=== PATIENT | female | born 1970 | race Hispanic/Latino ===

== ENCOUNTER 2017-08-28 12:56 | Emergency (ER) | payer MEDICARE ==
[2017-08-28 12:57] VITALS: BMI 29.5
[2017-08-28 13:28] VITALS: TEMP 98.9
--- NOTE | 2017-08-28 14:58 | ED PDOC ---
Arrival/HPI - General Chief Complaint: Alcohol Ingestion Time Seen by Provider: 08/28/17 14:14 Historian: Patient - History of Present Illness Narrative History of Present Illness (Text): 08/28/17 14:57 A 47 year old female presents to the emergency department complaining of right ankle pain after mechanical fall last night. Patient admits to drinking alcohol yesterday. She reports while at home she twisted her ankle causing her to fall and hit the back of her head. Patient notes 1 episode of bloody vomiting this morning but denies any other injuries, headache, dizziness, neck pain, abdominal pain, back pain, chest pain, shortness of breath or other complaints. PMD: Dr. Valerio Time/Duration: Other (yesterday night) Context: Home Past Medical History - Provider Review Nursing Documentation Reviewed: Yes - Infectious Disease Hx of Infectious Diseases: None - Tetanus Immunization Tetanus Immunization: Unknown - Reproductive Menopause: Yes - Past Medical History Past Medical History: No Previous - Cardiac Hx Cardiac Disorders: No Hx Pacemaker: No - Pulmonary Hx Respiratory Disorders: No - Neurological Hx Neurological Disorder: No Hx Paralysis: No - HEENT Hx HEENT Disorder: No - Renal Hx Renal Disorder: No - Endocrine/Metabolic Hx Endocrine Disorders: No - Hematological/Oncological Hx Blood Disorders: Yes Hx Hepatitis B: Yes - Integumentary Hx Dermatological Disorder: No - Musculoskeletal/Rheumatological Hx Musculoskeletal Disorders: Yes Other/Comment: R LEG "HAS FATTY TISSUE" - Gastrointestinal Hx Gastrointestinal Disorders: Yes Hx Gastroesophageal Reflux: Yes Hx Gastrointestinal Ulcer: Yes - Genitourinary/Gynecological Hx Genitourinary Disorders: No - Psychiatric Hx Psychophysiologic Disorder: No Hx Substance Use: No - Past Surgical History Past Surgical History: No Previous - Surgical History Hx Section: Yes Hx Cholecystectomy: Yes Other/Comment: ENDOSCOPY - Anesthesia Hx Anesthesia: Yes - Suicidal Assessment Feels Threatened In Home Enviroment: No Family/Social History - Physician Review Nursing Documentation Reviewed: Yes Family/Social History: No Known Family HX Smoking Status: Never Smoked Hx Alcohol Use: Yes Hx Substance Use: No Hx Substance Use Treatment: No Allergies/Home Meds Allergies/Adverse Reactions: Allergies No Known Allergies Allergy (Verified 08/28/17 13:19) Review of Systems - Physician Review All systems were reviewed & negative as marked: Yes - Review of Systems Respiratory: absent: SOB Cardiovascular: absent: Chest Pain Gastrointestinal: Hematemesis. absent: Abdominal Pain Musculoskeletal: Other (right ankle pain). absent: Back Pain, Neck Pain Neurological: absent: Headache, Dizziness Physical Exam Vital Signs Reviewed: Yes Vital Signs Temp Pulse Resp BP Pulse Ox 08/28/17 21:41 82 17 128/75 98 08/28/17 19:00 76 18 128/76 100 08/28/17 17:14 74 17 120/75 99 08/28/17 15:00 78 18 121/80 100 08/28/17 13:27 98.9 F 83 16 119/82 97 Temperature: Afebrile Blood Pressure: Normal Pulse: Regular Respiratory Rate: Normal Appearance: Positive for: Well-Appearing, Non-Toxic, Comfortable Pain Distress: None Mental Status: Positive for: Alert and Oriented X 3 - Systems Exam Head: Present: Atraumatic, Normocephalic Pupils: Present: PERRL Extroacular Muscles: Present: EOMI Conjunctiva: Present: Normal Mouth: Present: Moist Mucous Membranes Neck: Present: Normal Range of Motion. No: MIDLINE TENDERNESS, Paraspinal Tenderness Respiratory/Chest: Present: Clear to Auscultation, Good Air Exchange. No: Respiratory Distress, Accessory Muscle Use Cardiovascular: Present: Regular Rate and Rhythm, Normal S1, S2. No: Murmurs Abdomen: Present: Tenderness (mild epigastric tenderness), Normal Bowel Sounds. No: Distention, Peritoneal Signs, Rebound, Guarding Back: Present: Normal Inspection. No: CVA Tenderness, Midline Tenderness, Paraspinal Tenderness Upper Extremity: Present: Normal Inspection. No: Cyanosis, Edema Lower Extremity: Present: NORMAL PULSES, Normal ROM (to right ankle), Tenderness (Right ankle tenderness to palpation), Swelling (Rigth ankle swelling ), Neurovascularly Intact (Sensation intact). No: Edema, CALF TENDERNESS, Erythema, Deformity, Temperature Abnormalties, Other (Ecchymosis) Neurological: Present: GCS=15, CN II-XII Intact, Speech Normal Skin: Present: Warm, Dry, Normal Color. No: Rashes Psychiatric: Present: Alert, Oriented x 3, Normal Insight, Normal Concentration Medical Decision Making ED Course and Treatment: 08/28/17 14:57 Impression: A 47 year old female with right ankle pain after fall. Patient notes 1 episode of bloody vomiting this morning. Differential Diagnosis included but are not limited to: Fall with ankle pain r/ o ankle fracture, Gastric ulcer vs. GI bleed Plan: -- Abdomen and pelvis CT -- Chest xray -- Right ankle xray -- Labs -- Urinalysis -- Protonix, IV fluids and Tylenol -- Reassess and disposition Progress Notes: Due to head injury occurring 24 hours ago and no post-concussion like symptoms there is no suspicion for intracranial hemorrhage. Will not order head CT at this time. 08/28/17 17:20 Ankle xray read and interpreted by me, which shows no acute fracture. Report Date : 08/28/2017 18:20:28 PROCEDURE: CHEST RADIOGRAPH, 1 VIEW Dictator : Garcia Johansen MD IMPRESSION: No active disease. Report Date : 08/28/2017 21:22:00 EXAM: CT Abdomen and Pelvis With Intravenous Contrast Dictator : Darius Davidson MD IMPRESSION: 1. No definite acute intraabdominal abnormality. 2. Incidental/non-acute findings are described above. 08/28/17 21:39 Leucytosis noted. UA negative. CXR negative. No cough. No urinary symptoms. CT reviewed and results above. On re-evaluation, patient feels better. There were no episodes of vomiting while in the emergency room. I have discussed the results and plan with the patient, who expresses understanding. Patient in agreement with plan to be discharged home. An air cast with anaya wrap was placed on patients ankle and crutches were given. Patient did not want crutches and said she'd walk on it. She says she's fine when she walks. I informed her that it's better to have the crutches for support and due to her sprain but she did not want it . Patient was instructed to follow up with physician or return if symptoms worsen or new concerning symptoms arise. - Lab Interpretations Lab Results: 08/28/17 16:45 08/28/17 16:45 Lab Results 08/28/17 17:50: Urine Color Yellow, Urine Appearance Clear, Urine pH 5.5, Ur Specific [place] >= 1.030, Urine Protein Negative, Urine Glucose (UA) Negative, Urine Ketones Trace H, Urine Blood Negative, Urine Nitrate Negative, Urine Bilirubin Negative, Urine Urobilinogen 0.2, Ur Leukocyte Esterase Negative 08/28/17 16:55: Blood Type B POSITIVE, Antibody Screen Negative, BBK History Checked Patient has bt 08/28/17 16:45: Sodium 141, Potassium 4.9, Chloride 105, Carbon Dioxide 25, Anion Gap 16, BUN 10, Creatinine 0.8, Est GFR ( Amer) > 60, Est GFR (Non- Af Amer) > 60, Random Glucose 92, Calcium 10.1, Total Bilirubin 0.7, AST 56 H, ALT 69 H, Alkaline Phosphatase 112, Total Protein 8.6 H, Albumin 4.4, Globulin 4.2, Albumin/Globulin Ratio 1.0 L, Lipase 76 08/28/17 16:45: PT 12.6 H, INR 1.10 H, APTT 33.6 08/28/17 16:45: WBC 15.3 H D, RBC 4.94, Hgb 13.4, Hct 41.9, MCV 84.8, MCH 27.1, MCHC 32.0, RDW 14.6 H, Plt Count 485 H, MPV 10.0, Gran % 88.6 H, Lymph % (Auto) 7.6 L, Luna % (Auto) 3.3, Eos % (Auto) 0.2 L, Baso % (Auto) 0.3, Gran # 13.54 H , Lymph # 1.2, Luna # 0.5, Eos # 0.0, Baso # 0.04 I have reviewed the lab results: Yes - RAD Interpretation Radiology Orders: 08/28/17 15:37 ANKLE RIGHT 3 VIEWS ROUTINE [RAD] Stat 08/28/17 17:07 CXR [CHEST ONE VIEW] [RAD] Stat 08/28/17 18:19 ABD & PELVIS IV CONTRAST ONLY [CT] Stat - Medication Orders Current Medication Orders: Discontinued Medications Acetaminophen (Tylenol 325mg Tab) 650 mg PO STAT STA Stop: 08/28/17 15:39 Last Admin: 08/28/17 16:32 Dose: 650 mg MAR Pain/Vitals Document 08/28/17 16:32 OCS (Rec: 08/28/17 16:33 OCS [id number]) Pain Reassessment Is This A Pain ReAssessment? Yes Sleep Is patient sleeping during reassessment? No Presence of Pain Presence of Pain Yes Pain Scale Used Pain Scale Used Numeric Location Left, Right or Bilateral Right Pain Location Body Site Ankle Description Constant Intensity 10 Scale Used Numeric Aggravating Factors ADL's Sodium Chloride (Sodium Chloride 0.9%) 500 mls @ 1,000 mls/hr IV .Q30M STA Stop: 08/28/17 16:06 Last Admin: 08/28/17 16:35 Dose: 1,000 mls/hr eMAR Start Stop Document 08/28/17 16:35 OCS (Rec: 08/28/17 16:35 [facility]CS [id number]) Intravenous Solution Start Date 08/28/17 Start Time 16:35 End Date 08/28/17 End time 17:05 Total Infusion Time 30 Pantoprazole Sodium (Protonix Inj) 80 mg IVP STAT STA Stop: 08/28/17 15:38 Last Admin: 08/28/17 16:33 Dose: 80 mg IVP Administration Document 08/28/17 16:33 OCS (Rec: 08/28/17 16:33 [facility]CS [id number]) Charges for Administration # of IVP Administrations 1 - Scribe Statement The provider has reviewed the documentation as recorded by the Nhiibterry Carnes Provider Scribe Attestation: All medical record entries made by the Scribe were at my direction and personally dictated by me. I have reviewed the chart and agree that the record accurately reflects my personal performance of the history, physical exam, medical decision making, and the department course for this patient. I have also personally directed, reviewed, and agree with the discharge instructions and disposition. Disposition/Present on Arrival - Present on Arrival Any Indicators Present on Arrival: No History of DVT/PE: No History of Uncontrolled Diabetes: No Urinary Catheter: No History of Decub. Ulcer: No History Surgical Site Infection Following: None - Disposition Have Diagnosis and Disposition been Completed?: Yes Diagnosis: Abdominal pain, epigastric, Leukocytosis Disposition: HOME/ ROUTINE Disposition Time: 21:39 Patient Plan: Discharge Condition: IMPROVED Discharge Instructions (ExitCare): Gastritis (ED), Gastrointestinal Bleeding ( ED), Ankle Sprain (ED) Additional Instructions: Ms Casanova, thank you for letting us take care of you today. Your provider was Dr. Dye. You were treated for Ankle Sprain, Gastritis. The emergency medical care you received today was directed at your acute symptoms. If you were prescribed any medication, please fill it and take as directed. It may take several days for your symptoms to resolve. Return to the Emergency Department if your symptoms worsen, do not improve, or if you have any other problems. Please contact your doctor or call one of the physicians/clinics you have been referred to that are listed on the Patient Visit Information form that is included in your discharge packet. Bring any paperwork you were given at discharge with you along with any medications you are taking to your follow up visit. Our treatment cannot replace ongoing medical care by a primary care provider (PCP) outside of the emergency department. Thank you for allowing the [facility] team to be part of your care today. If you had an X-Ray or CT scan: A Radiologist will review the ED reading if any change in treatment is needed we will contact you. If you had a blood, urine, or wound culture: It will take several days for the results, if any change in treatment is needed we will contact you. If you had an STI test: It will take 48 hours for the results. Please call after 1 week if you have not heard back. Prescriptions: Pantoprazole [Protonix EC Tab] 40 mg PO DAILY #30 ect Referrals: Jeevan PALMA,MD Mayur [Medical Doctor] - Follow up with primary Josh Valerio MD [Primary Care Provider] - Follow up with primary Tyler Arredondo MD [Staff Provider] - Follow up with primary Forms: [employer] ([employer]), WORK NOTE
[2017-08-28] MEDS ORDERED: Sodium Chloride 0.9% 500 ML IV STA (15:37)
[2017-08-28 16:58] LABS: BASO # 0.04 K/mm3 (0.0-2.0); BASO % 0.3 % (0.0-3.0); EOS % 0.2 % (1.5-5.0); GRAN # 13.54 (1.4-6.5); GRAN % 88.6 % (50.0-68.0); HEMOGLOBIN 13.4 g/dL (12.0-16.0); LYMPH # 1.2 (1.2-3.4); LYMPH % 7.6 % (22.0-35.0); MEAN CELL VOLUME 84.8 fl (80.0-105.0); MEAN CORPUSCULAR HEMOGLOBIN 27.1 pg (25.0-35.0); MONO # 0.5 (0.1-0.6); MONO % 3.3 % (1.0-6.0); RBC 4.94 10^6/uL (3.5-6.1); RED CELL DISTRIBUTION WIDTH 14.6 % (11.5-14.5); WHITE BLOOD COUNT 15.3 10^3/ul (4.5-11.0)
[2017-08-28 17:04] LABS: INR 1.1 (0.93-1.08); PARTIAL THROMBOPLASTIN TIME 33.6 Seconds (25.1-36.5); PROTHROMBIN TIME 12.6 SECONDS (9.4-12.5)
[2017-08-28 17:38] LABS: ALBUMIN 4.4 g/dL (3.0-4.8); ALT/SGPT 69 U/L (7-56); AST/SGOT 56 U/L (14-36); BLOOD UREA NITROGEN 10 mg/dL (7-21); CALCIUM 10.1 mg/dL (8.4-10.5); GFR AFRICAN-AMERICAN > 60; GFR NON-AFRICAN AMERICAN > 60; LIPASE 76 U/L (23-300)
[2017-08-28 18:06] LABS: PH,URINE 5.5 (4.7-8.0); URINE BILIRUBIN NEGATIVE (NEGATIVE); URINE BLOOD NEGATIVE (NEGATIVE); URINE GLUCOSE (UA) NEGATIVE (NEGATIVE); URINE LEUKOCYTE ESTERASE NEGATIVE Leu/uL (NEGATIVE); URINE NITRATE NEGATIVE (NEGATIVE); URINE PROTEIN NEGATIVE mg/dL (<30 mg/dL); URINE UROBILINOGEN 0.2 E.U./dL (<1 E.U./dL)
[2017-08-28 18:07] LABS: URINE APPEARANCE CLEAR (CLEAR); URINE COLOR YELLOW (YELLOW)
--- NOTE | 2017-08-28 18:21 | RAD ---
PROCEDURE: CHEST RADIOGRAPH, 1 VIEW HISTORY: leukocytosis COMPARISON: None available. FINDINGS: LUNGS: Clear. PLEURA: No pneumothorax or pleural fluid seen. CARDIOVASCULAR: Normal. OSSEOUS STRUCTURES: No significant abnormalities. VISUALIZED UPPER ABDOMEN: Normal. OTHER FINDINGS: None. IMPRESSION: No active disease. Concordant results with the preliminary interpretation rendered by the emergency department physician procedure.
[2017-08-28] MEDS ORDERED: Iohexol 350 MG/100 ML VIAL ONE (19:05)
--- NOTE | 2017-08-28 21:23 | CT ---
EXAM: CT Abdomen and Pelvis With Intravenous Contrast CLINICAL HISTORY: 47 years old, female; Pain; Abdominal pain; Prior surgery; Surgery type: - cholecystectomy; Additional info: Abd pain TECHNIQUE: Axial computed tomography images of the abdomen and pelvis with intravenous contrast. All CT scans at this facility use one or more dose reduction techniques, viz.: automated exposure control; ma/kV adjustment per patient size (including targeted exams where dose is matched to indication; i.e. head); or iterative reconstruction technique. Coronal and sagittal reformatted images were created and reviewed. CONTRAST: 92 mL of OMNI 350 administered intravenously. COMPARISON: CT - ABD PELVIS IV CONTRAST ONLY 2016-05-31 12:31 FINDINGS: Limitations: Motion artifact - mild. Lower thorax: Borderline cardiomegaly. Minimal atelectasis/scarring. ABDOMEN: Liver: Unremarkable. No mass. Gallbladder and bile ducts: Cholecystectomy. No significant ductal dilation. Pancreas: No ductal dilation. No mass. Spleen: No splenomegaly. Adrenals: No mass. Kidneys and ureters: Few too small to characterize lesions within RIGHT kidney. No hydronephrosis. Stomach and bowel: Segmental areas of probable underdistention of colon. No definite mural thickening. No obstruction. Appendix: Normal caliber. No inflammation. PELVIS: Bladder: Unremarkable. Reproductive: Unremarkable as visualized. ABDOMEN and PELVIS: Intraperitoneal space: No significant fluid collection. No free air. Bones/joints: No acute fracture. Soft tissues: Tiny umbilical hernia containing fat. Vasculature: Minimal atherosclerotic disease of aorta. No aneurysm. Lymph nodes: No pathologically enlarged lymph nodes. IMPRESSION: 1. No definite acute intraabdominal abnormality. 2. Incidental/non-acute findings are described above.
[2017-08-28 21:42] VITALS: BP 128/75; PULSE 82; RESP 17; O2SAT 98
--- NOTE | 2017-08-29 10:30 | RAD ---
PROCEDURE: Right Ankle Radiographs. HISTORY: Posttraumatic ankle pain. COMPARISON: None FINDINGS: BONES: Normal. No fracture. Small plantar calcaneal spur. JOINTS: Normal. No osteoarthritis. Ankle mortise maintained. Talar dome intact SOFT TISSUES: Lateral soft tissue swelling without fibular fracture. OTHER FINDINGS: None. IMPRESSION: Soft tissue swelling without acute articular or osseous abnormality. Concordant results with the preliminary interpretation rendered by the emergency department physician procedure.
== END 2017-08-28 22:02 | disposition home or self-care (01) ==
LOC: ED 12:56
DX: D72.829 Elevated white blood cell count, unspecified (principal); R10.13 Epigastric pain; S93.401A Sprain of unspecified ligament of right ankle, initial encounter; W18.39XA Other fall on same level, initial encounter; Y92.009 Unspecified place in unspecified non-institutional (private) residence as the place of occurrence of the external cause
CPT/HCPCS: 71045; 73610; 74177; 80053; 81003; 83690; 85025; 85610; 85730; 86850; 86900; 96374; 99285; C9113; J7040; Q9967

== ENCOUNTER 2017-11-14 07:30 | Day surgery (SDC) | payer MEDICARE ==
[2017-11-10 10:27] VITALS: BMI 28.3
[2017-11-14 08:02] VITALS: RESP 14
[2017-11-14] MEDS ORDERED: Propofol 10 mg/ml Inj (20 ML) ONE (09:15)
[2017-11-14] MEDS ORDERED: Sodium Chloride 0.9% 1,000 ML IV SCH (09:45)
[2017-11-14 10:15] VITALS: BP 123/81; PULSE 52; TEMP 98.7; O2SAT 95
== END 2017-11-14 23:30 | disposition home or self-care (01) ==
LOC: ENDO 07:30
PROVIDERS: ATTEND Internal Medicine Gastroenterology
DX: K92.0 Hematemesis (principal); K29.50 Unspecified chronic gastritis without bleeding; K31.9 Disease of stomach and duodenum, unspecified; K21.0 Gastro-esophageal reflux disease with esophagitis
CPT/HCPCS: 43239; 84703; 88305; 88312; 88342; J2001; J2704; J7040 ×2

== ENCOUNTER 2017-11-29 10:53 | Emergency (ER) | payer MEDICARE ==
[2017-11-29 10:54] VITALS: BMI 28.3
[2017-11-29 11:45] VITALS: TEMP 98.3
[2017-11-29] MEDS ORDERED: Alum-Mag Hydrox-Simethicone Susp (30 mL) PO STA (12:00)
[2017-11-29] MEDS ORDERED: Atrop/Hyosc/Scopal/PB Elixir (120 ml) PO STA (12:00)
[2017-11-29] MEDS ORDERED: Lidocaine 2% Viscous 100 ml PO STA (12:01)
--- NOTE | 2017-11-29 12:07 | ED PDOC ---
Arrival/HPI <Fernando Dye - Last Filed: 11/29/17 13:51> - History of Present Illness Time/Duration: 1-3 hours Symptom Onset: Gradual Symptom Course: Improving <Moises Allen - Last Filed: 11/29/17 14:04> - General Chief Complaint: GI Problem Time Seen by Provider: 11/29/17 11:42 - History of Present Illness Narrative History of Present Illness (Text): 11/29/17 12:03 46 year old female with a past medical history that includes gastritis presents to the emergency department complaining of one episode of hematemesis today. She describes it as a small streaks of bright red blood with bile. She reports some epigastric pain that feels similar to the symptoms she has had in the past. Patient had an EGD done with Dr. Higuera on 11/14/17, which showed esophagitis and erosive gastritis. The episode of hematemesis occurred around 830 this morning. Patient decided to shower and eat breakfast (a bowl of cereal ) before she came to the hospital. She tolerated the cereal and did not feel nauseous. Patient is not currently nauseous and has mild abdominal pain. She was given a prescription for a PPI after the EGD but states she has not been taking it because she is unable to afford the medication. She has not taken anything for the abdominal pain. Denies alcohol use or tobacco use. Denies fevers, chills, diarrhea, constipation, chest pain, shortness of breath, headaches, numbness, tingling, urinary changes, sore throat, cough or runny nose. PMD: Dr. Valerio (Moises Allen) Past Medical History - Provider Review Nursing Documentation Reviewed: Yes - Infectious Disease Hx of Infectious Diseases: None - Tetanus Immunization Tetanus Immunization: Unknown - Reproductive Menopause: Yes - Past Medical History Past Medical History: No Previous - Cardiac Hx Pacemaker: No - Pulmonary Hx Respiratory Disorders: No - Neurological Hx Paralysis: No - HEENT Hx HEENT Disorder: No - Renal Hx Renal Disorder: No - Endocrine/Metabolic Hx Endocrine Disorders: No - Hematological/Oncological Hx Blood Transfusions: No Hx Blood Transfusion Reaction: No - Integumentary Hx Dermatological Disorder: No - Musculoskeletal/Rheumatological Hx Musculoskeletal Disorders: Yes - Gastrointestinal Hx Gastrointestinal Disorders: Yes Hx Gastroesophageal Reflux: Yes Hx Gastrointestinal Ulcer: Yes - Genitourinary/Gynecological Hx Genitourinary Disorders: No - Psychiatric Hx Emotional Abuse: No Hx Physical Abuse: No Hx Substance Use: No - Past Surgical History Past Surgical History: No Previous - Surgical History Hx Section: Yes Hx Cholecystectomy: Yes Other/Comment: ENDOSCOPY - Anesthesia Hx Anesthesia: Yes Hx Anesthesia Reactions: No Hx Malignant Hyperthermia: No - Suicidal Assessment Feels Threatened In Home Enviroment: No <Moises Allen - Last Filed: 11/29/17 14:04> Family/Social History - Physician Review Nursing Documentation Reviewed: Yes Family/Social History: Unknown Family HX Smoking Status: Never Smoked Hx Alcohol Use: Yes (ON OCCASIONS ONLY) Hx Substance Use: No Hx Substance Use Treatment: No <Moises Allen - Last Filed: 11/29/17 14:04> Allergies/Home Meds <Fernando Dye - Last Filed: 11/29/17 13:51> <Moises Allen - Last Filed: 11/29/17 14:04> Allergies/Adverse Reactions: Allergies No Known Allergies Allergy (Verified 11/29/17 11:46) Review of Systems - Physician Review All systems were reviewed & negative as marked: Yes - Review of Systems Constitutional: Normal Eyes: Normal ENT: Normal Respiratory: Normal Cardiovascular: Normal Gastrointestinal: Normal Genitourinary Female: Normal Musculoskeletal: Normal Skin: Normal Neurological: Normal Endocrine: Normal Hemo/Lymphatic: Normal Psychiatric: Normal <Moises Allen - Last Filed: 11/29/17 14:04> Physical Exam Vital Signs Reviewed: Yes Temperature: Afebrile Blood Pressure: Normal Pulse: Regular Respiratory Rate: Normal Appearance: Positive for: Well-Appearing, Non-Toxic, Comfortable Pain Distress: None Mental Status: Positive for: Alert and Oriented X 3 - Systems Exam Head: Present: Atraumatic, Normocephalic Pupils: Present: PERRL Extroacular Muscles: Present: EOMI Conjunctiva: Present: Normal Mouth: Present: Moist Mucous Membranes Pharnyx: Present: Normal. No: ERYTHEMA, EXUDATE Nose (External): Present: Atraumatic Nose (Internal): Present: Normal Inspection, No Active Bleeding, Moist. No: Rhinorrhea Neck: Present: Normal Range of Motion Respiratory/Chest: Present: Clear to Auscultation, Good Air Exchange. No: Respiratory Distress, Accessory Muscle Use Cardiovascular: Present: Regular Rate and Rhythm, Normal S1, S2. No: Murmurs Abdomen: Present: Normal Bowel Sounds. No: Tenderness, Distention, Peritoneal Signs, Rebound, Guarding Upper Extremity: Present: Normal Inspection. No: Cyanosis, Edema Lower Extremity: Present: Normal Inspection. No: Edema Neurological: Present: GCS=15, CN II-XII Intact, Speech Normal Skin: Present: Warm, Dry, Normal Color. No: Rashes Lymphatic: No: Cervical Adenopathy Psychiatric: Present: Alert, Oriented x 3, Normal Insight, Normal Concentration <Moises Allen - Last Filed: 11/29/17 14:04> Vital Signs Temp Pulse Resp BP Pulse Ox 11/29/17 11:42 98.3 F 85 19 139/84 97 Medical Decision Making <Fernando Dye - Last Filed: 11/29/17 13:51> Re-evaluation Time: 13:45 Reassessment Condition: Re-examined, Improving,but remains with symptoms ( patient reports improving abdominal pain.) <Moises Allen - Last Filed: 11/29/17 14:04> ED Course and Treatment: 11/29/17 12:49 Kiara Casanova is a 47 year old female whose past medical history includes gastritis, presents to the emergency room complaining of an episode of hematemesis. In agreement with resident note. Patient was seen and evaluated with resident, came up with plan and treatment together. 11/29/17 13:51: Case discussed in detail with Dr. Ma. (Fernando Dye) Patient is resting comfortably in bed in no acute distress. She is smiling, laughing and speaking in complete sentences. Vitals are stable. Patient reports all symptoms have resolved at this time except for mild epigastric pain, although she is not tender to palpation. Labs not indicated at this time. Given combo of viscous lidocaine, maalox and . (Moises Allen) - Medication Orders Current Medication Orders: Discontinued Medications Al Hydrox/Mg Hydrox/Simethicone (Maalox Plus 30 Ml) 30 ml PO STAT STA Stop: 11/29/17 12:01 Last Admin: 11/29/17 12:12 Dose: 30 ml Belladonna/Phenobarbital ( Elixir) 5 ml PO STAT STA Stop: 11/29/17 12:01 Last Admin: 11/29/17 12:12 Dose: 5 ml Lidocaine (Lidocaine 2% Viscous) 15 ml PO STAT STA Stop: 11/29/17 12:02 Lidocaine HCl (Lidocaine 2% Viscous) 15 ml MM STAT STA Stop: 11/29/17 12:03 Last Admin: 11/29/17 12:12 Dose: 15 ml - Scribe Statement The provider has reviewed the documentation as recorded by the Scribe <Fernando Dye - Last Filed: 11/29/17 13:51> <Moises Allen - Last Filed: 11/29/17 14:04> - Scribe Statement Serenity Gunter Provider Scribe Attestation: All medical record entries made by the Scribe were at my direction and personally dictated by me. I have reviewed the chart and agree that the record accurately reflects my personal performance of the history, physical exam, medical decision making, and the department course for this patient. I have also personally directed, reviewed, and agree with the discharge instructions and disposition. (Fernando Dye) Disposition/Present on Arrival <Fernando Dye - Last Filed: 11/29/17 13:51> - Present on Arrival Any Indicators Present on Arrival: No History of DVT/PE: No History of Uncontrolled Diabetes: No Urinary Catheter: No History of Decub. Ulcer: No History Surgical Site Infection Following: None - Disposition Have Diagnosis and Disposition been Completed?: Yes Disposition Time: 14:00 Patient Plan: Discharge <Moises Allen - Last Filed: 11/29/17 14:04> - Disposition Diagnosis: GERD (gastroesophageal reflux disease), Abdominal pain, epigastric, Gastritis Disposition: HOME/ ROUTINE Condition: IMPROVED Discharge Instructions (ExitCare): Acid Reflux (Gastroesophageal Reflux Disease ) in Adults, Gastritis Additional Instructions: Ms FranklinJocelyne, thank you for letting us take care of you today. Your provider was Dr. Dye. You were treated for abdominal pain. The emergency medical care you received today was directed at your acute symptoms. If you were prescribed any medication, please fill it and take as directed. It may take several days for your symptoms to resolve. Return to the Emergency Department if your symptoms worsen, do not improve, or if you have any other problems. Please contact your doctor or call one of the physicians/clinics you have been referred to that are listed on the Patient Visit Information form that is included in your discharge packet. Bring any paperwork you were given at discharge with you along with any medications you are taking to your follow up visit. Our treatment cannot replace ongoing medical care by a primary care provider (PCP) outside of the emergency department. Thank you for allowing the [facility] team to be part of your care today. Referrals: Josh Valerio MD [Primary Care Provider] - Follow up with primary Forms: [employer] (French)
[2017-11-29 14:36] VITALS: BP 135/78; PULSE 72; RESP 18; O2SAT 98
== END 2017-11-29 14:36 | disposition home or self-care (01) ==
LOC: ED 10:53
DX: K21.9 Gastro-esophageal reflux disease without esophagitis (principal); K29.70 Gastritis, unspecified, without bleeding; R10.13 Epigastric pain

== ENCOUNTER 2017-11-30 11:18 | Emergency (ER) | payer MEDICARE ==
[2017-11-30 11:18] VITALS: BMI 28.3
[2017-11-30] MEDS ORDERED: Sodium Chloride 0.9% 1,000 ML IV STA (11:31)
--- NOTE | 2017-11-30 12:00 | ED PDOC ---
Arrival/HPI - General Time Seen by Provider: 11/30/17 11:25 Historian: Patient - History of Present Illness Narrative History of Present Illness (Text): 11/30/17 11:56 A 47 year old female, whose past medical history includes erosive gastritis, presents to the emergency department for worsening epigastric abdominal aching. The patient denies taking medication for the pain. She notes she has had two episodes of watery diarrhea, but she denies any urinary problems, fever, vomiting, or any other complaints at this time. The patient was last seen in the emergency department 1 day ago for similar complaints. Time/Duration: 24 hours Symptom Onset: Gradual Symptom Course: Unchanged Quality: Aching Activities at Onset: Light Context: Home Past Medical History - Provider Review Nursing Documentation Reviewed: Yes - Infectious Disease Hx of Infectious Diseases: None - Tetanus Immunization Tetanus Immunization: Unknown - Past Medical History Past Medical History: No Previous - Cardiac Hx Pacemaker: No - Pulmonary Hx Respiratory Disorders: No - Neurological Hx Paralysis: No - HEENT Hx HEENT Disorder: No - Renal Hx Renal Disorder: No - Endocrine/Metabolic Hx Endocrine Disorders: No - Hematological/Oncological Hx Blood Transfusions: No Hx Blood Transfusion Reaction: No - Integumentary Hx Dermatological Disorder: No - Musculoskeletal/Rheumatological Hx Musculoskeletal Disorders: Yes - Gastrointestinal Hx Gastrointestinal Disorders: Yes Hx Gastroesophageal Reflux: Yes Hx Gastrointestinal Ulcer: Yes - Genitourinary/Gynecological Hx Genitourinary Disorders: No - Psychiatric Hx Emotional Abuse: No Hx Physical Abuse: No Hx Substance Use: No - Past Surgical History Past Surgical History: No Previous - Surgical History Hx Section: Yes Hx Cholecystectomy: Yes Other/Comment: ENDOSCOPY - Anesthesia Hx Anesthesia: Yes Hx Anesthesia Reactions: No Hx Malignant Hyperthermia: No - Suicidal Assessment Feels Threatened In Home Enviroment: No Family/Social History - Physician Review Nursing Documentation Reviewed: Yes Family/Social History: No Known Family HX Smoking Status: Never Smoked Hx Alcohol Use: Yes (ON OCCASIONS ONLY) Hx Substance Use: No Hx Substance Use Treatment: No Allergies/Home Meds Allergies/Adverse Reactions: Allergies No Known Allergies Allergy (Verified 11/29/17 11:46) Review of Systems - Physician Review All systems were reviewed & negative as marked: Yes - Review of Systems Constitutional: absent: Fevers Gastrointestinal: Abdominal Pain, Diarrhea. absent: Nausea, Vomiting Genitourinary Female: absent: Dysuria, Urine Output Changes Physical Exam Vital Signs Reviewed: Yes Vital Signs Temp Pulse Resp BP Pulse Ox 11/30/17 12:53 59 L 18 135/74 100 11/30/17 11:59 98.2 F 55 L 20 139/80 96 11/30/17 11:33 98.2 F 57 L 18 139/80 99 Temperature: Afebrile Blood Pressure: Normal Pulse: Bradycardic Respiratory Rate: Normal Appearance: Positive for: Well-Appearing, Non-Toxic, Comfortable Pain Distress: None Mental Status: Positive for: Alert and Oriented X 3 - Systems Exam Head: Present: Atraumatic, Normocephalic Pupils: Present: PERRL Extroacular Muscles: Present: EOMI Conjunctiva: Present: Normal Mouth: Present: Moist Mucous Membranes Neck: Present: Normal Range of Motion Respiratory/Chest: Present: Clear to Auscultation, Good Air Exchange. No: Respiratory Distress, Accessory Muscle Use Cardiovascular: Present: Regular Rate and Rhythm, Normal S1, S2. No: Murmurs Abdomen: Present: Tenderness (mild epigastric tenderness ). No: Distention, Peritoneal Signs, Guarding Back: Present: Normal Inspection Upper Extremity: Present: Normal Inspection. No: Cyanosis, Edema Lower Extremity: Present: Normal Inspection. No: Edema Neurological: Present: GCS=15, CN II-XII Intact, Speech Normal Skin: Present: Warm, Dry, Normal Color. No: Rashes Psychiatric: Present: Alert, Oriented x 3, Normal Insight, Normal Concentration Medical Decision Making ED Course and Treatment: 11/30/17 11:57 Impression: A 47 year old female with epigastric pain. Differential Diagnosis included but are not limited to: gastritis rule or pancreatitis Plan: -- Labs -- Pepcid, Zofran, IV Fluids -- Reassess and disposition Progress Notes: 11/30/17 13:20 Patient is feeling better. Abdomen is soft and not tender. Not distended. No n/ v. Patient is tolerating PO fluids. She will be discharged with primary care followup and GI followup. Patient advised to return to the ED if symptoms worsen or any other concern. - Lab Interpretations Lab Results: 11/30/17 12:30 11/30/17 12:30 Lab Results 11/30/17 12:30: Sodium 146, Potassium 5.1 H, Chloride 106, Carbon Dioxide 30, Anion Gap 16, BUN 9, Creatinine 0.8, Est GFR ( Amer) > 60, Est GFR (Non- Af Amer) > 60, Random Glucose 90, Calcium 9.7, Total Bilirubin 0.3, AST 23, ALT 22, Alkaline Phosphatase 89, Total Protein 8.1, Albumin 4.3, Globulin 3.8, Albumin/Globulin Ratio 1.1, Lipase 189 11/30/17 12:30: WBC 7.7 D, RBC 4.57, Hgb 12.2, Hct 38.7, MCV 84.7, MCH 26.7, MCHC 31.5, RDW 15.2 H, Plt Count 402, MPV 9.7, Gran % 67.7, Lymph % (Auto) 20.8 L, [place] % (Auto) 5.9, Eos % (Auto) 4.8, Baso % (Auto) 0.8, Gran # 5.19, Lymph # (Auto) 1.6, [place] # (Auto) 0.5, Eos # (Auto) 0.4, Baso # (Auto) 0.06 - Medication Orders Current Medication Orders: Discontinued Medications Famotidine (Pepcid) 20 mg IVP STAT STA Stop: 11/30/17 11:32 Last Admin: 11/30/17 12:43 Dose: 20 mg IVP Administration Document 11/30/17 12:43 (Rec: 11/30/17 12:43 [id number] Charges for Administration # of IVP Administrations 1 Sodium Chloride (Sodium Chloride 0.9%) 1,000 mls @ 1,000 mls/hr IV .Q1H STA Stop: 11/30/17 12:30 Last Admin: 11/30/17 12:44 Dose: 1,000 mls/hr eMAR Start Stop Document 11/30/17 12:44 (Rec: 11/30/17 12:44 [id number][facility] Intravenous Solution Start Date 11/30/17 Start Time 12:44 Ondansetron HCl (Zofran Inj) 4 mg IVP STAT STA Stop: 11/30/17 11:32 Last Admin: 11/30/17 12:43 Dose: 4 mg IVP Administration Document 11/30/17 12:43 (Rec: 11/30/17 12:44 [id number] Charges for Administration # of IVP Administrations 1 Sodium Polystyrene Sulfonate (Kayexalate Susp) 15 gm PO STAT STA Stop: 11/30/17 12:50 Last Admin: 11/30/17 13:09 Dose: 15 gm - Scribe Statement The provider has reviewed the documentation as recorded by the Nhiibe Geno De Leon Provider Scribe Attestation: All medical record entries made by the Scribe were at my direction and personally dictated by me. I have reviewed the chart and agree that the record accurately reflects my personal performance of the history, physical exam, medical decision making, and the department course for this patient. I have also personally directed, reviewed, and agree with the discharge instructions and disposition. Disposition/Present on Arrival - Present on Arrival Any Indicators Present on Arrival: No History of DVT/PE: No History of Uncontrolled Diabetes: No Urinary Catheter: No History Surgical Site Infection Following: None - Disposition Have Diagnosis and Disposition been Completed?: Yes Diagnosis: Abdominal pain Disposition: HOME/ ROUTINE Disposition Time: 13:22 Patient Plan: Discharge Patient Problems: Current Active Problems Problem Status Onset Abdominal pain Acute Condition: IMPROVED Discharge Instructions (ExitCare): Acute Abdomen (Belly Pain) Additional Instructions: Jocelyne, thank you for letting us take care of you today. Your provider was Dr. Dye. You were treated for Abdominal Pain. The emergency medical care you received today was directed at your acute symptoms. If you were prescribed any medication, please fill it and take as directed. It may take several days for your symptoms to resolve. Return to the Emergency Department if your symptoms worsen, do not improve, or if you have any other problems. Please contact your doctor or call one of the physicians/clinics you have been referred to that are listed on the Patient Visit Information form that is included in your discharge packet. Bring any paperwork you were given at discharge with you along with any medications you are taking to your follow up visit. Our treatment cannot replace ongoing medical care by a primary care provider (PCP) outside of the emergency department. Thank you for allowing the [facility] team to be part of your care today. If you had an X-Ray or CT scan: A Radiologist will review the ED reading if any change in treatment is needed we will contact you. If you had a blood, urine, or wound culture: It will take several days for the results, if any change in treatment is needed we will contact you. If you had an STI test: It will take 48 hours for the results. Please call after 1 week if you have not heard back. Prescriptions: Ondansetron ODT [Zofran ODT] 4 mg PO Q6 #14 odt Ranitidine HCl [Zantac] 150 mg PO BID PRN #30 tablet PRN Reason: Pain, Mild (1-3) Referrals: Josh Valerio MD [Primary Care Provider] - Follow up with primary Forms: [employer] (Indonesian)
[2017-11-30 12:39] LABS: BASO # 0.06 K/mm3 (0.0-2.0); BASO % 0.8 % (0.0-3.0); EOS # 0.4 (0.0-0.7); EOS % 4.8 % (1.5-5.0); GRAN # 5.19 (1.4-6.5); GRAN % 67.7 % (50.0-68.0); HEMOGLOBIN 12.2 g/dL (12.0-16.0); LYMPH # 1.6 (1.2-3.4); LYMPH % 20.8 % (22.0-35.0); MEAN CELL VOLUME 84.7 fl (80.0-105.0); MEAN CORPUSCULAR HEMOGLOBIN 26.7 pg (25.0-35.0); MEAN CORPUSCULAR HGB CONC 31.5 g/dl (31.0-37.0); MEAN PLATELET VOLUME 9.7 fl (7.0-11.0); MONO # 0.5 (0.1-0.6); MONO % 5.9 % (1.0-6.0); RBC 4.57 10^6/uL (3.5-6.1); RED CELL DISTRIBUTION WIDTH 15.2 % (11.5-14.5); WHITE BLOOD COUNT 7.7 10^3/ul (4.5-11.0)
[2017-11-30 12:47] LABS: ALB/GLOB RATIO 1.1 (1.1-1.8); ALBUMIN 4.3 g/dL (3.0-4.8); ALT/SGPT 22 U/L (7-56); AST/SGOT 23 U/L (14-36); BLOOD UREA NITROGEN 9 mg/dL (7-21); CALCIUM 9.7 mg/dL (8.4-10.5); GFR AFRICAN-AMERICAN > 60; GFR NON-AFRICAN AMERICAN > 60; LIPASE 189 U/L (23-300)
[2017-11-30] MEDS ORDERED: Sod Polystyrene Sulf 15 gm/60 ml Susp PO STA (12:49)
[2017-11-30 12:53] VITALS: RESP 18
[2017-11-30 14:38] VITALS: BP 139/60; PULSE 55; TEMP 98.7; O2SAT 97
== END 2017-11-30 14:30 | disposition home or self-care (01) ==
LOC: ED 11:18
DX: R10.9 Unspecified abdominal pain (principal)
CPT/HCPCS: 80053; 83690; 85025; 96374; 96375; 99283; J2405; J7040

== ENCOUNTER 2017-12-04 19:13 | Emergency (ER) | payer MEDICARE ==
[2017-12-04 19:13] VITALS: BMI 28.3
[2017-12-04 19:27] VITALS: BP 121/69; PULSE 100; RESP 17; TEMP 99.2; O2SAT 97
[2017-12-04] MEDS ORDERED: Atrop/Hyosc/Scopal/PB Elixir (120 ml) PO STA (19:51)
[2017-12-04] MEDS ORDERED: Alum-Mag Hydrox-Simethicone Susp (30 mL) PO STA (19:51)
--- NOTE | 2017-12-04 19:55 | ED PDOC ---
Arrival/HPI - General Chief Complaint: Abdominal Pain Time Seen by Provider: 12/04/17 19:29 Historian: Patient - History of Present Illness Narrative History of Present Illness (Text): 12/04/17 19:52 46 year old female with a past medical history that includes gastritis presents to the emergency department complaining of epigastric pain. Patient admits she has come for same complain last weekend, and ER medication helps to relief her gastritis. Patient has not been able to get medication for gastritis since she does not have money. Patient otherwise states she feels well. Patient denies fever, nausea, vomiting, diarrhea, recent travel, sick contact, estevez, dizziness, or abnormal gait. Time/Duration: Other (see hpi) Context: Home Past Medical History - Provider Review Nursing Documentation Reviewed: Yes - Infectious Disease Hx of Infectious Diseases: None - Tetanus Immunization Tetanus Immunization: Unknown - Past Medical History Past Medical History: No Previous - Cardiac Hx Cardiac Disorders: No - Pulmonary Hx Respiratory Disorders: No - Neurological Hx Neurological Disorder: No - HEENT Hx HEENT Disorder: No - Renal Hx Renal Disorder: No - Endocrine/Metabolic Hx Endocrine Disorders: No - Hematological/Oncological Hx Blood Disorders: No - Integumentary Hx Dermatological Disorder: No - Musculoskeletal/Rheumatological Hx Musculoskeletal Disorders: Yes - Gastrointestinal Hx Gastrointestinal Disorders: Yes Hx Gastroesophageal Reflux: Yes Hx Gastrointestinal Ulcer: Yes - Genitourinary/Gynecological Hx Genitourinary Disorders: No - Psychiatric Hx Psychophysiologic Disorder: No Hx Substance Use: No - Past Surgical History Past Surgical History: No Previous - Surgical History Hx Section: Yes Hx Cholecystectomy: Yes Hx Tubal Ligation: Yes Other/Comment: ENDOSCOPY - Anesthesia Hx Anesthesia: Yes Hx Anesthesia Reactions: No Hx Malignant Hyperthermia: No - Suicidal Assessment Feels Threatened In Home Enviroment: No Family/Social History - Physician Review Nursing Documentation Reviewed: Yes Family/Social History: Other (noncontributory) Smoking Status: Never Smoked Hx Alcohol Use: Yes (ON OCCASIONS ONLY) Hx Substance Use: No Hx Substance Use Treatment: No Allergies/Home Meds Allergies/Adverse Reactions: Allergies No Known Allergies Allergy (Verified 12/04/17 19:22) Review of Systems - Review of Systems Constitutional: Normal. absent: Fatigue, Weight Change, Fevers Eyes: Normal ENT: Normal Respiratory: Normal. absent: SOB, Cough Cardiovascular: Normal. absent: Chest Pain, Palpitations Gastrointestinal: Abdominal Pain (epigastric). absent: Constipation, Diarrhea, Nausea, Vomiting Genitourinary Female: Normal. absent: Dysuria, Frequency, Vaginal Bleeding, Vaginal Discharge Musculoskeletal: Normal. absent: Back Pain, Neck Pain Skin: Normal. absent: Rash Neurological: Normal. absent: Headache, Dizziness, Focal Weakness, Gait Changes , Speech Changes, Facial Droop, Disequilibrium, Seizure Endocrine: Normal Hemo/Lymphatic: Normal Psychiatric: Normal Physical Exam Vital Signs Temp Pulse Resp BP Pulse Ox 12/04/17 19:22 99.2 F 100 H 17 121/69 97 Temperature: Afebrile Blood Pressure: Normal Pulse: Regular Respiratory Rate: Normal Appearance: Positive for: Well-Appearing, Non-Toxic, Comfortable Pain Distress: None Mental Status: Positive for: Alert and Oriented X 3 - Systems Exam Head: Present: Atraumatic, Normocephalic Pupils: Present: PERRL Extroacular Muscles: Present: EOMI Conjunctiva: Present: Normal Mouth: Present: Moist Mucous Membranes Neck: Present: Normal Range of Motion. No: Meningeal Signs, MIDLINE TENDERNESS , Paraspinal Tenderness Respiratory/Chest: Present: Clear to Auscultation, Good Air Exchange. No: Respiratory Distress, Accessory Muscle Use, Wheezes, Retracting, Rhonchi Cardiovascular: Present: Regular Rate and Rhythm, Normal S1, S2. No: Murmurs Abdomen: Present: Normal Bowel Sounds. No: Tenderness, Distention, Peritoneal Signs, Rebound, Guarding Upper Extremity: Present: Normal Inspection, Normal ROM, NORMAL PULSES. No: Edema Lower Extremity: Present: Normal Inspection, NORMAL PULSES, Normal ROM. No: Edema Neurological: Present: GCS=15, CN II-XII Intact, Speech Normal, Motor Func Grossly Intact, Normal Sensory Function, Normal Cerebellar Funct, Gait Normal, Memory Normal Skin: Present: Warm, Dry, Normal Color. No: Rashes Psychiatric: Present: Alert, Oriented x 3, Normal Insight, Normal Concentration Medical Decision Making ED Course and Treatment: 12/04/17 20:55 Re-evaluation. Patient feels better. Discussed results and plan with patient who expresses understanding. All questions answered and there is agreement with the plan to discharge home with instructions. Patient stable for discharge. Return if symptoms persist or worsen. Abdomen is soft, nt/nd Re-evaluation Time: 20:55 Reassessment Condition: Re-examined, Improved - Medication Orders Current Medication Orders: Discontinued Medications Al Hydrox/Mg Hydrox/Simethicone (Maalox Plus 30 Ml) 30 ml PO STAT STA Stop: 12/04/17 19:52 Last Admin: 12/04/17 20:14 Dose: 30 ml Belladonna/Phenobarbital ( Elixir) 5 ml PO STAT STA Stop: 12/04/17 19:52 Last Admin: 12/04/17 20:14 Dose: 5 ml Famotidine (Pepcid) 40 mg PO STAT STA Stop: 12/04/17 19:52 Last Admin: 12/04/17 20:14 Dose: 40 mg Lidocaine HCl (Lidocaine 2% Viscous) 5 ml PO STAT STA Stop: 12/04/17 19:52 Last Admin: 12/04/17 20:14 Dose: 5 ml Disposition/Present on Arrival - Present on Arrival Any Indicators Present on Arrival: No History of DVT/PE: No History of Uncontrolled Diabetes: No Urinary Catheter: No History of Decub. Ulcer: No History Surgical Site Infection Following: None - Disposition Have Diagnosis and Disposition been Completed?: Yes Diagnosis: GERD (gastroesophageal reflux disease) Disposition: HOME/ ROUTINE Disposition Time: 20:55 Patient Plan: Discharge Condition: IMPROVED Discharge Instructions (ExitCare): Acid Reflux (Gastroesophageal Reflux Disease ), Adult (DC) Additional Instructions: Call private doctor for follow up visit in 1-2 days. You can also call clinic if you do not have a doctor. Take medication as instructed. Return to emergency if symptoms worsen. Prescriptions: Famotidine [Pepcid] 40 mg PO DAILY #20 tablet Sucralfate [Carafate] 1 gm PO DAILY #20 tab Referrals: [facility] Fredy Turner, [Non-Staff] - Follow up with primary Garcia Hill DO [Staff Provider] - Follow up with primary Jose Alberto Acharya MD [Staff Provider] - Follow up with primary Forms: [employer] (Yi)
== END 2017-12-04 21:00 | disposition home or self-care (01) ==
LOC: ED 19:13
DX: K21.9 Gastro-esophageal reflux disease without esophagitis (principal)

== ENCOUNTER 2018-03-15 08:10 | Emergency (ER) | payer MEDICARE ==
[2018-03-15 08:10] VITALS: BMI 28.3
[2018-03-15 08:59] VITALS: RESP 18; TEMP 98.6
--- NOTE | 2018-03-15 09:10 | ED PDOC ---
Arrival/HPI - General Chief Complaint: Lower Extremity Problem/Injury Time Seen by Provider: 03/15/18 08:51 Historian: Patient - History of Present Illness Narrative History of Present Illness (Text): 03/15/18 09:03 48 year old female,with past medical history of gastritis, presents to the Emergency department complaining of left ankle discomfort since past month. Patient informs non radiating localized discomfort to her posterior left ankle worsening for past day prompting her to present to the Emergency department for medical evaluation. Patient denies taking any pain medication stating she is unable to afford it. Patient denies visiting her PMD for the presented symptoms. Patient denies any fever, chills, nausea, vomiting, diarrhea, abdominal pain, chest pain, shortness of breath, headache, dizziness, trauma or any other complaints. PMD: Dr. Valerio Time/Duration: < month Symptom Onset: Gradual Symptom Course: Unchanged Quality: Aching Activities at Onset: Light Context: Home Past Medical History - Provider Review Nursing Documentation Reviewed: Yes - Infectious Disease Hx of Infectious Diseases: None - Tetanus Immunization Tetanus Immunization: Unknown - Past Medical History Past Medical History: No Previous - Cardiac Hx Cardiac Disorders: No - Pulmonary Hx Respiratory Disorders: No - Neurological Hx Neurological Disorder: No - HEENT Hx HEENT Disorder: No - Renal Hx Renal Disorder: No - Endocrine/Metabolic Hx Endocrine Disorders: No - Hematological/Oncological Hx Blood Disorders: No - Integumentary Hx Dermatological Disorder: No - Musculoskeletal/Rheumatological Hx Musculoskeletal Disorders: Yes - Gastrointestinal Hx Gastrointestinal Disorders: Yes Hx Gastroesophageal Reflux: Yes Hx Gastrointestinal Ulcer: Yes - Genitourinary/Gynecological Hx Genitourinary Disorders: No - Psychiatric Hx Psychophysiologic Disorder: No Hx Substance Use: No - Past Surgical History Past Surgical History: No Previous - Surgical History Hx Section: Yes (x2) Hx Cholecystectomy: Yes Hx Tubal Ligation: Yes Other/Comment: ENDOSCOPY - Anesthesia Hx Anesthesia: Yes Hx Anesthesia Reactions: No Hx Malignant Hyperthermia: No - Suicidal Assessment Feels Threatened In Home Enviroment: No Family/Social History - Physician Review Nursing Documentation Reviewed: Yes Family/Social History: No Known Family HX Smoking Status: Never Smoked Hx Alcohol Use: Yes (ON OCCASIONS ONLY) Hx Substance Use: No Hx Substance Use Treatment: No Allergies/Home Meds Allergies/Adverse Reactions: Allergies No Known Allergies Allergy (Verified 03/15/18 08:53) Review of Systems - Physician Review All systems were reviewed & negative as marked: Yes - Review of Systems Constitutional: absent: Fevers Respiratory: absent: SOB Cardiovascular: absent: Chest Pain Gastrointestinal: absent: Abdominal Pain, Diarrhea, Nausea, Vomiting Musculoskeletal: Other (left ankle pain) Neurological: absent: Headache, Dizziness Physical Exam Vital Signs Reviewed: Yes Vital Signs Temp Pulse Resp BP Pulse Ox 03/15/18 09:57 98.6 F 77 18 122/79 99 03/15/18 08:53 98.6 F 64 18 120/55 L 97 Temperature: Afebrile Blood Pressure: Normal Pulse: Regular Respiratory Rate: Normal Appearance: Positive for: Well-Appearing, Non-Toxic, Comfortable Pain Distress: None Mental Status: Positive for: Alert and Oriented X 3 - Systems Exam Head: Present: Atraumatic, Normocephalic Pupils: Present: PERRL Extroacular Muscles: Present: EOMI Conjunctiva: Present: Normal Respiratory/Chest: Present: Clear to Auscultation, Good Air Exchange. No: Respiratory Distress, Accessory Muscle Use Cardiovascular: Present: Regular Rate and Rhythm, Normal S1, S2. No: Murmurs Abdomen: No: Tenderness, Distention, Peritoneal Signs Upper Extremity: Present: Normal Inspection. No: Cyanosis, Edema Lower Extremity: Present: NORMAL PULSES, Normal ROM, Tenderness (posterior left ankle tenderness), Neurovascularly Intact. No: Edema, Swelling Neurological: Present: GCS=15, CN II-XII Intact, Speech Normal Skin: Present: Warm, Dry, Normal Color. No: Rashes Psychiatric: Present: Alert, Oriented x 3, Normal Insight, Normal Concentration Medical Decision Making ED Course and Treatment: 03/15/18 09:10 Impression: 48 year old female presents to the Emergency department for left ankle discomfort. Differential Diagnosis included but are not limited to: fracture vs. musculoskeletal Plan: -- Tylenol -- X-ray of left ankle -- Reassess and disposition Prior Visits: Notes and results from previous visits were reviewed. Progress Notes: 03/15/18 14:32 xr neg. pt ambulating in nad. no erytehma warmth good rom, advise otut fu - RAD Interpretation Radiology Orders: 03/15/18 08:59 ANKLE LEFT 3 VIEWS ROUTINE [RAD] Stat - Medication Orders Current Medication Orders: Discontinued Medications Acetaminophen (Tylenol 325mg Tab) 975 mg PO STAT STA Stop: 03/15/18 09:00 Last Admin: 03/15/18 09:17 Dose: 975 mg MAR Pain/Vitals Document 03/15/18 09:17 SHON (Rec: 03/15/18 09:17 SHON [id number]) Pain Reassessment Is This A Pain ReAssessment? No Sleep Is patient sleeping during reassessment? No Presence of Pain Presence of Pain Yes Pain Scale Used Pain Scale Used Numeric - Scribe Statement The provider has reviewed the documentation as recorded by the Scribe Crescencio Ng. All medical record entries made by the Scribe were at my direction and personally dictated by me. I have reviewed the chart and agree that the record accurately reflects my personal performance of the history, physical exam, medical decision making, and the department course for this patient. I have also personally directed, reviewed, and agree with the discharge instructions and disposition. Disposition/Present on Arrival - Present on Arrival Any Indicators Present on Arrival: No History of DVT/PE: No History of Uncontrolled Diabetes: No Urinary Catheter: No History of Decub. Ulcer: No History Surgical Site Infection Following: None - Disposition Have Diagnosis and Disposition been Completed?: Yes Diagnosis: Ankle pain Disposition: HOME/ ROUTINE Disposition Time: 10:00 Condition: STABLE Discharge Instructions (ExitCare): Foot Sprain (DC) Additional Instructions: please follow up with specialist. return to er with worsening symptoms or concerns. Prescriptions: Naproxen 500 mg PO BID PRN #14 tablet PRN Reason: Pain, Mild (1-3) Referrals: Cuco Mathews DO [Staff Provider] - Follow up with primary Forms: [employer] (Palestinian)
[2018-03-15 09:59] VITALS: BP 122/79; PULSE 77; O2SAT 99
--- NOTE | 2018-03-15 12:37 | RAD ---
Date of service: 03/15/2018 PROCEDURE: Left Ankle Radiographs. HISTORY: ankle pain COMPARISON: None FINDINGS: BONES: No evidence of acute displaced fracture nor dislocation. The osseous structures including talar dome intact. Small plantar surface enthesophyte JOINTS: No significant degenerative osteoarthritis Osteoarthritis. Ankle mortise maintained. SOFT TISSUES: No significant soft tissue swelling. OTHER FINDINGS: None. IMPRESSION: No evidence of acute displaced fracture nor dislocation. If symptoms persist or occult fracture suspected clinically consider repeat radiographs in 5-10 days as most fractures should become radiographically evident in this timeframe.
== END 2018-03-15 09:57 | disposition home or self-care (01) ==
LOC: ED 08:10
DX: M25.572 Pain in left ankle and joints of left foot (principal)

== ENCOUNTER 2018-03-18 11:03 | Emergency (ER) | payer MEDICARE ==
[2018-03-18 11:31] VITALS: BP 116/93; PULSE 88; RESP 18; TEMP 98.2; O2SAT 98; BMI 35.0
[2018-03-18] MEDS ORDERED: Sodium Chloride 0.9% 1,000 ML IV STA (11:38)
--- NOTE | 2018-03-18 11:53 | ED PDOC ---
Arrival/HPI - General Chief Complaint: GI Problem Time Seen by Provider: 03/18/18 11:07 Historian: Patient EM Caveat: Acuity of Condition - History of Present Illness Narrative History of Present Illness (Text): 48 y/o F w/ h/o gastric ulcers presenting to the ED for bloody emesis. The patient states she was at home in the bathroom, passing a bowel movement when she reports a sudden wave of sickness that came over her. She reports multiple episodes of bright red blood that resolved on its own. She denies any dark stools, constipation or diarrhea. She denies taking any medications for her symptoms. Of note, the patient states she had a history of gastric ulcers diagnosed on endoscopy, but has been unable to afford the medications needed for treatment and prophylaxis due to insurance issues. Of note, she reports having her last endoscopy in 12/2017 which revealed gastritis and multiple ulcers. She denies chest pain, fevers/chills, shortness of breath, dizziness, lightheadedness, abdominal pain, syncopal episodes, hematuria, dysuria, back pain, or headaches at this time. PCP: Dr. Valerio Specialist: Dr. Adonay Higuera(GI) Time/Duration: Prior to Arrival Symptom Onset: Sudden Symptom Course: Resolved Quality: Unable to Describe Severity Level: Mild Activities at Onset: Rest Context: Home Past Medical History - Provider Review Nursing Documentation Reviewed: Yes - Travel History Have you recently traveled outside [place] w/in the past 3 mons?: No - Patient History Narrative Patient History: Gastric ulcers - Infectious Disease Hx of Infectious Diseases: None - Tetanus Immunization Tetanus Immunization: Unknown - Past Medical History Past Medical History: No Previous - Cardiac Hx Cardiac Disorders: No - Pulmonary Hx Respiratory Disorders: No - Neurological Hx Neurological Disorder: No - HEENT Hx HEENT Disorder: No - Renal Hx Renal Disorder: No - Endocrine/Metabolic Hx Endocrine Disorders: No - Hematological/Oncological Hx Blood Disorders: No - Integumentary Hx Dermatological Disorder: No - Musculoskeletal/Rheumatological Hx Musculoskeletal Disorders: Yes - Gastrointestinal Hx Gastrointestinal Disorders: Yes Hx Gastroesophageal Reflux: Yes Hx Gastrointestinal Ulcer: Yes - Genitourinary/Gynecological Hx Genitourinary Disorders: No - Psychiatric Hx Psychophysiologic Disorder: No Hx Substance Use: No - Past Surgical History Past Surgical History: No Previous - Surgical History Hx Section: Yes - Anesthesia Hx Anesthesia: Yes Hx Anesthesia Reactions: No Hx Malignant Hyperthermia: No - Suicidal Assessment Feels Threatened In Home Enviroment: No Family/Social History - Physician Review Nursing Documentation Reviewed: Yes Family/Social History: Unknown Family HX Smoking Status: Never Smoked Hx Alcohol Use: Yes (ON OCCASIONS ONLY) Hx Substance Use: No Hx Substance Use Treatment: No Allergies/Home Meds Allergies/Adverse Reactions: Allergies No Known Allergies Allergy (Verified 03/15/18 08:53) Review of Systems - Review of Systems Constitutional: absent: Fevers, Night Sweats ENT: absent: Hearing Changes Respiratory: absent: SOB, Sputum, Wheezing Cardiovascular: absent: Chest Pain, Edema, Calf Pain Gastrointestinal: Vomiting, Hematochezia. absent: Abdominal Pain, Stool Changes , Constipation, Nausea, Hematemesis, Food Intolerance Genitourinary Female: absent: Dysuria, Hematuria Musculoskeletal: absent: Back Pain, Myalgias Skin: absent: Rash Neurological: absent: Headache, Dizziness Physical Exam Vital Signs Reviewed: Yes Vital Signs Temp Pulse Resp BP Pulse Ox 03/18/18 11:28 98.2 F 88 18 116/93 H 98 Temperature: Afebrile Pulse: Regular Respiratory Rate: Normal Appearance: Positive for: Well-Appearing, Non-Toxic, Comfortable Pain Distress: None Mental Status: Positive for: Alert and Oriented X 3 - Systems Exam Head: Present: Atraumatic, Normocephalic Mouth: Present: Moist Mucous Membranes Respiratory/Chest: Present: Clear to Auscultation, Good Air Exchange. No: Respiratory Distress, Wheezes, Rales, Tachypneic Cardiovascular: Present: Regular Rate and Rhythm, Normal S1, S2 Abdomen: Present: Normal Bowel Sounds. No: Tenderness, Distention, Peritoneal Signs Rectal: Present: Hemorrhoids, Other (Non-thrombosed external hemorrhoid noted at 6' oclock position. Brown stool yielded from rectal vault. Hemeoccult negative. ). No: Occult Blood, Gross Blood, Melena Neurological: Present: GCS=15, CN II-XII Intact, Speech Normal Skin: Present: Warm, Dry, Normal Color. No: Rashes, Pale Psychiatric: Present: Alert, Oriented x 3, Normal Insight, Normal Concentration Medical Decision Making ED Course and Treatment: Impression 48 y/o F w/ h/o gastric ulcer presenting with bloody emesis worrisome for GI bleeding -will keep a low threshold for transfusion, GI consult and possible urgent endoscopy/colonoscopy if needed Differential Includes but is Not Limited to: Gastritis PUD Esophagitis Ana Maria-Crystal Syndrome Angiodysplasia Plan --Labs --Pepcid --Maalox --IVF --GI consult Progress Notes 03/18/18 13:00 Labs reviewed with Hgb 11.6 with hemeoccult negative. SBP WNL. Patient is hemodynamically stable and denies any further bleeding with voiding/bowel movements at this time. She desires to go home and states she has an upcoming appointment with her GI physician. She reports she has a follow up appointment with her PCP on 03/23/18. Scripts provided. She is stable for discharge. 03/18/18 22:26 - Lab Interpretations Lab Results: 03/18/18 12:15 03/18/18 12:15 Lab Results 03/18/18 12:15: Blood Type B POSITIVE, Antibody Screen Negative, BBK History Checked Patient has bt 03/18/18 12:15: Urine Color Yellow, Urine Appearance Clear, Urine pH 6.0, Ur Specific [place] 1.025, Urine Protein Negative, Urine Glucose (UA) Negative, Urine Ketones Negative, Urine Blood Negative, Urine Nitrate Negative, Urine Bilirubin Negative, Urine Urobilinogen 0.2, Ur Leukocyte Esterase Trace H, Urine RBC 0 - 2, Urine WBC 1 - 3, Ur Epithelial Cells 4 - 5, Urine Bacteria Mod , Urine Other Fiber 03/18/18 12:15: PT 10.9, INR 0.95, APTT 30.2 03/18/18 12:15: Beta HCG, Quant 8.10 H 03/18/18 12:15: Sodium 145, Potassium 4.8, Chloride 110 H, Carbon Dioxide 24, Anion Gap 16, BUN 13, Creatinine 1.0, Est GFR ( Amer) > 60, Est GFR (Non- Af Amer) 59, Random Glucose 100, Calcium 9.2, Total Bilirubin 0.2, AST 23, ALT 12, Alkaline Phosphatase 83, Total Protein 7.5, Albumin 4.0, Globulin 3.5, Albumin/Globulin Ratio 1.1 03/18/18 12:15: WBC 9.7 D, RBC 4.41, Hgb 11.6 L, Hct 36.2, MCV 82.1, MCH 26.3, MCHC 32.0, RDW 15.3 H, Plt Count 384, MPV 9.8, Gran % 75.4 H, Lymph % (Auto) 16.4 L, [place] % (Auto) 4.5, Eos % (Auto) 3.4, Baso % (Auto) 0.3, Gran # 7.32 H, Lymph # (Auto) 1.6, [place] # (Auto) 0.4, Eos # (Auto) 0.3, Baso # (Auto) 0.03 - Medication Orders Current Medication Orders: Discontinued Medications Al Hydrox/Mg Hydrox/Simethicone (Maalox Plus 30 Ml) 30 ml PO STAT STA Stop: 03/18/18 11:59 Last Admin: 03/18/18 12:19 Dose: 30 ml Famotidine (Pepcid) 20 mg IVP STAT STA Stop: 03/18/18 11:59 Last Admin: 03/18/18 12:19 Dose: 20 mg IVP Administration Document 03/18/18 12:19 HI (Rec: 03/18/18 12:27 [facility] Charges for Administration # of IVP Administrations 1 Sodium Chloride (Sodium Chloride 0.9%) 1,000 mls @ 999 mls/hr IV .Q1H1M STA Stop: 03/18/18 12:38 Last Admin: 03/18/18 12:19 Dose: 999 mls/hr eMAR Start Stop Document 03/18/18 12:19 HI (Rec: 03/18/18 12:27 [facility]) Intravenous Solution Start Date 03/18/18 Start Time 12:19 Disposition/Present on Arrival - Present on Arrival Any Indicators Present on Arrival: No History of DVT/PE: No History of Uncontrolled Diabetes: No Urinary Catheter: No History of Decub. Ulcer: No History Surgical Site Infection Following: None - Disposition Have Diagnosis and Disposition been Completed?: Yes Diagnosis: Vomiting, Nausea & vomiting, Hematemesis Disposition: HOME/ ROUTINE Disposition Time: 13:33 Patient Plan: Discharge Condition: STABLE Discharge Instructions (ExitCare): Gastrointestinal Bleeding (DC), Nausea and Vomiting, Adult Prescriptions: Famotidine [Pepcid] 40 mg PO BID 10 Days #20 tab Referrals: oJsh Valerio MD [Primary Care Provider] - Follow up with primary Forms: [employer] (Setswana)
[2018-03-18] MEDS ORDERED: Alum-Mag Hydrox-Simethicone Susp (30 mL) PO STA (11:58)
[2018-03-18 12:33] LABS: URINE BILIRUBIN NEGATIVE (NEGATIVE); URINE BLOOD NEGATIVE (NEGATIVE); URINE GLUCOSE (UA) NEGATIVE (NEGATIVE); URINE LEUKOCYTE ESTERASE TRACE Leu/uL (NEGATIVE); URINE PROTEIN NEGATIVE mg/dL (<30 mg/dL); URINE UROBILINOGEN 0.2 E.U./dL (<1 E.U./dL)
[2018-03-18 12:35] LABS: BASO # 0.03 K/mm3 (0.0-2.0); BASO % 0.3 % (0.0-3.0); EOS # 0.3 (0.0-0.7); EOS % 3.4 % (1.5-5.0); GRAN # 7.32 (1.4-6.5); GRAN % 75.4 % (50.0-68.0); HEMOGLOBIN 11.6 g/dL (12.0-16.0); LYMPH # 1.6 (1.2-3.4); LYMPH % 16.4 % (22.0-35.0); MEAN CELL VOLUME 82.1 fl (80.0-105.0); MEAN CORPUSCULAR HEMOGLOBIN 26.3 pg (25.0-35.0); MEAN PLATELET VOLUME 9.8 fl (7.0-11.0); MONO # 0.4 (0.1-0.6); MONO % 4.5 % (1.0-6.0); RBC 4.41 10^6/uL (3.5-6.1); RED CELL DISTRIBUTION WIDTH 15.3 % (11.5-14.5); WHITE BLOOD COUNT 9.7 10^3/ul (4.5-11.0)
[2018-03-18 12:36] LABS: URINE APPEARANCE CLEAR (CLEAR); URINE COLOR YELLOW (YELLOW)
[2018-03-18 12:41] LABS: BLOOD UREA NITROGEN 13 mg/dL (7-21); CALCIUM 9.2 mg/dL (8.4-10.5); GFR AFRICAN-AMERICAN > 60; GFR NON-AFRICAN AMERICAN 59; INR 0.95; PARTIAL THROMBOPLASTIN TIME 30.2 Seconds (25.1-36.5); PROTHROMBIN TIME 10.9 SECONDS (9.4-12.5)
[2018-03-18 12:42] LABS: ALB/GLOB RATIO 1.1 (1.1-1.8); ALT/SGPT 12 U/L (7-56); AST/SGOT 23 U/L (14-36); URINE BACTERIA MOD (NEG); URINE RBC 0 - 2 /hpf (0-2)
== END 2018-03-18 13:45 | disposition home or self-care (01) ==
LOC: ED 11:03
DX: K92.0 Hematemesis (principal); K22.6 Gastro-esophageal laceration-hemorrhage syndrome
CPT/HCPCS: 80053; 81001; 84702; 85025; 85610; 85730; 86850; 86900; 87086; 96374; 99281; J7030

== ENCOUNTER 2018-11-09 13:17 | Emergency (ER) | payer MEDICARE ==
[2018-11-09 13:51] VITALS: RESP 18; TEMP 97.8; BMI 30.8
[2018-11-09] MEDS ORDERED: Sodium Chloride 0.9% 500 ML IV STA (14:16)
--- NOTE | 2018-11-09 14:22 | ED PDOC ---
Arrival/HPI - General Historian: Patient - History of Present Illness Narrative History of Present Illness (Text): 11/09/18 14:19 Patient is a 48yo F with PMH gastritis presenting to ED with abdominal pain since this morning. She reports squeezing epigastric pain that she rates 9/10. She denies radiation of the pain, nausea, or vomiting. She reports not eating much food yesterday. She usually takes pepcid at home, but has run out of her rx. She denies fever, chills, chest pain, shortness of breath, diarrhea, constipation, dysuria, recent travel or sick contacts. <Bonnie Russell - Last Filed: 11/09/18 17:29> <Desmond Saleem - Last Filed: 11/09/18 17:54> - General Chief Complaint: Abdominal Pain Time Seen by Provider: 11/09/18 13:25 Past Medical History - Infectious Disease Hx of Infectious Diseases: None - Tetanus Immunization Tetanus Immunization: Unknown - Reproductive Menopause: Yes - Past Medical History Past Medical History: No Previous - Cardiac Hx Cardiac Disorders: No - Pulmonary Hx Respiratory Disorders: No - Neurological Hx Neurological Disorder: No - HEENT Hx HEENT Disorder: No - Renal Hx Renal Disorder: No - Endocrine/Metabolic Hx Endocrine Disorders: No - Hematological/Oncological Hx Blood Disorders: No - Integumentary Hx Dermatological Disorder: No - Musculoskeletal/Rheumatological Hx Musculoskeletal Disorders: Yes - Gastrointestinal Hx Gastrointestinal Disorders: Yes Hx Gastroesophageal Reflux: Yes Hx Gastrointestinal Ulcer: Yes - Genitourinary/Gynecological Hx Genitourinary Disorders: No - Psychiatric Hx Psychophysiologic Disorder: No Hx Substance Use: No - Past Surgical History Past Surgical History: No Previous - Surgical History Hx Section: Yes - Anesthesia Hx Anesthesia: Yes Hx Anesthesia Reactions: No Hx Malignant Hyperthermia: No - Suicidal Assessment Feels Threatened In Home Enviroment: No <Bonnie Russell - Last Filed: 11/09/18 17:29> Family/Social History Family/Social History: No Known Family HX Smoking Status: Never Smoked Hx Alcohol Use: Yes (ON OCCASIONS ONLY) Hx Substance Use: No Hx Substance Use Treatment: No <Bonnie Russell - Last Filed: 11/09/18 17:29> Allergies/Home Meds <Bonnie Russell - Last Filed: 11/09/18 17:29> <Desmond Saleem - Last Filed: 11/09/18 17:54> Allergies/Adverse Reactions: Allergies No Known Allergies Allergy (Verified 03/15/18 08:53) Review of Systems - Review of Systems Constitutional: absent: Fevers Eyes: absent: Vision Changes Respiratory: absent: SOB Cardiovascular: absent: Chest Pain Gastrointestinal: Abdominal Pain. absent: Constipation, Diarrhea, Nausea, Vomiting Genitourinary Female: absent: Dysuria Musculoskeletal: absent: Back Pain Neurological: absent: Headache <Bonnie Russell - Last Filed: 11/09/18 17:29> Physical Exam Vital Signs Temp Pulse Resp BP Pulse Ox 11/09/18 13:51 97.8 F 81 18 124/83 96 - Systems Exam Head: Present: Atraumatic, Normocephalic Pupils: Present: PERRL Extroacular Muscles: Present: EOMI Conjunctiva: Present: Normal Mouth: Present: Other (poor dentition) Neck: Present: Normal Range of Motion Respiratory/Chest: Present: Clear to Auscultation. No: Good Air Exchange, Accessory Muscle Use, Wheezes, Rhonchi Cardiovascular: Present: Regular Rate and Rhythm, Normal S1, S2. No: Murmurs, R ub, Gallop Abdomen: Present: Normal Bowel Sounds. No: Tenderness, Distention, Peritoneal Signs, Rebound, Guarding Upper Extremity: Present: Normal Inspection Lower Extremity: Present: Normal Inspection. No: Edema Neurological: Present: GCS=15, CN II-XII Intact, Speech Normal Skin: Present: Normal Color Psychiatric: Present: Alert, Oriented x 3 <Bonnie Russell - Last Filed: 11/09/18 17:29> Vital Signs Reviewed: Yes Vital Signs Temp Pulse Resp BP Pulse Ox 11/09/18 15:18 75 18 122/74 97 11/09/18 13:51 97.8 F 81 18 124/83 96 Temperature: Afebrile Blood Pressure: Normal Pulse: Regular Respiratory Rate: Normal Appearance: Positive for: Well-Appearing, Non-Toxic, Comfortable Pain Distress: None Mental Status: Positive for: Alert and Oriented X 3 <ZacceciliaDesmond altman - Last Filed: 11/09/18 17:54> Medical Decision Making - Medication Orders Current Medication Orders: Sodium Chloride (Sodium Chloride 0.9%) 500 mls @ 1,000 mls/hr IV .Q30M STA Stop: 11/09/18 14:45 Discontinued Medications Ondansetron HCl (Zofran Inj) 4 mg IVP STAT STA Stop: 11/09/18 14:17 Pantoprazole Sodium (Protonix Inj) 40 mg IVP STAT STA Stop: 11/09/18 14:17 <Bonnie Russell - Last Filed: 11/09/18 17:29> ED Course and Treatment: 11/09/18 13:50 In agreement with resident note which contains more details about the patient. Patient seen and evaluated with resident. Came up with plan and treatment together. 48 year old female presents to the ED for evaluation of abdominal plan. suspec tgastris vs pancreatits vs pud.; Plan: -- CT of Abdomen/Pelvis -- EKG -- Labs -- Protonix -- IV Fluids -- Zofran -- Urinalysis 11/09/18 17:53 labs neg. mild luekocytosis. ct neg for acute pathology pain resovled. pt comfortable with dc. no cardiopulm complaitns lungs cta. advsei outpt fu return precautions - Lab Interpretations Lab Results: PT 12.3 SECONDS (9.4-12.5) 11/09/18 14:50 INR 1.11 11/09/18 14:50 APTT 33.0 Seconds (26.9-38.3) 11/09/18 14:50 Total Bilirubin 0.4 mg/dL (0.2-1.3) 11/09/18 14:50 Total Protein 8.8 g/dL (5.8-8.3) H 11/09/18 14:50 Albumin 4.5 g/dL (3.0-4.8) 11/09/18 14:50 Globulin 4.3 gm/dL 11/09/18 14:50 Albumin/Globulin Ratio 1.1 (1.1-1.8) 11/09/18 14:50 Lipase 87 U/L (23-300) 11/09/18 14:50 - RAD Interpretation Radiology Orders: 11/09/18 15:20 ABD & PELVIS IV CONTRAST ONLY [CT] Stat - Medication Orders Current Medication Orders: Discontinued Medications Sodium Chloride (Sodium Chloride 0.9%) 500 mls @ 1,000 mls/hr IV .Q30M STA Stop: 11/09/18 14:45 Last Admin: 11/09/18 15:08 Dose: 1,000 mls/hr eMAR Start Stop Document 11/09/18 15:08 GMD (Rec: 11/09/18 15:08 GMD [place] [id number]-) Intravenous Solution Start Date 11/09/18 Start Time 15:08 End Date 11/09/18 End time 15:38 Total Infusion Time 30 Ondansetron HCl (Zofran Inj) 4 mg IVP STAT STA Stop: 11/09/18 14:17 Last Admin: 11/09/18 15:07 Dose: 4 mg IVP Administration Document 11/09/18 15:07 GMD (Rec: 11/09/18 15:07 GMD [id number]-) Charges for Administration # of IVP Administrations 1 Pantoprazole Sodium (Protonix Inj) 40 mg IVP STAT STA Stop: 11/09/18 14:17 Last Admin: 11/09/18 15:07 Dose: 40 mg IVP Administration Document 11/09/18 15:07 GMD (Rec: 11/09/18 15:08 GMD [id number]-) Charges for Administration # of IVP Administrations 1 <Desmond Saleem - Last Filed: 11/09/18 17:54> - PA / BROWNELL OPERATOR / Resident Statement / has reviewed & agrees with the documentation as recorded. / has examined the patient and agrees with the treatment plan. - Scribe Statement The provider has reviewed the documentation as recorded by the Scribe Crescencio Ng. All medical record entries made by the Nhiibterry were at my direction and personally dictated by me. I have reviewed the chart and agree that the record accurately reflects my personal performance of the history, physical exam, medical decision making, and the department course for this patient. I have also personally directed, reviewed, and agree with the discharge instructions and disposition. <Desmond Saleem - Last Filed: 11/09/18 17:54> Disposition/Present on Arrival - Present on Arrival Any Indicators Present on Arrival: No History of DVT/PE: No History of Uncontrolled Diabetes: No Urinary Catheter: No History of Decub. Ulcer: No History Surgical Site Infection Following: None - Disposition Have Diagnosis and Disposition been Completed?: Yes Disposition Time: 17:30 <Bonnie Russell - Last Filed: 11/09/18 17:29> <Desmond Saleem - Last Filed: 11/09/18 17:54> - Disposition Diagnosis: Abdominal pain, Leukocytosis Disposition: HOME/ ROUTINE Condition: IMPROVED Discharge Instructions (ExitCare): Acute Abdomen (Belly Pain), Adult (DC), White Blood Cell Count Differential Test Additional Instructions: return to er with worsening symptoms or concerns. Prescriptions: Famotidine [Pepcid] 20 mg PO DAILY #20 tab Referrals: Anibal Higuera MD [Medical Doctor] - Follow up with primary Forms: [employer] (Greek)
[2018-11-09 15:08] LABS: BASO # 0.03 K/mm3 (0.0-2.0); BASO % 0.2 % (0.0-3.0); EOS % 0.3 % (1.5-5.0); HEMOGLOBIN 11.8 g/dL (12.0-16.0); LYMPH # 1.4 (1.2-3.4); LYMPH % 10.4 % (22.0-35.0); MEAN CELL VOLUME 82.2 fl (80.0-105.0); MEAN CORPUSCULAR HEMOGLOBIN 26.2 pg (25.0-35.0); MEAN CORPUSCULAR HGB CONC 31.9 g/dl (31.0-37.0); MEAN PLATELET VOLUME 9.5 fl (7.0-11.0); MONO # 0.3 (0.1-0.6); MONO % 2.2 % (1.0-6.0); RBC 4.5 10^6/uL (3.5-6.1); RED CELL DISTRIBUTION WIDTH 15.1 % (11.5-14.5); WHITE BLOOD COUNT 13.7 10^3/uL (4.5-11.0)
[2018-11-09 15:16] LABS: INR 1.11; PROTHROMBIN TIME 12.3 SECONDS (9.4-12.5)
[2018-11-09 15:20] LABS: ALB/GLOB RATIO 1.1 (1.1-1.8); ALBUMIN 4.5 g/dL (3.0-4.8); BLOOD UREA NITROGEN 13 mg/dL (7-21); CALCIUM 9.4 mg/dL (8.4-10.5); GFR NON-AFRICAN AMERICAN > 60; LIPASE 87 U/L (23-300)
[2018-11-09 15:35] VITALS: O2SAT 97
[2018-11-09 15:45] LABS: ALT/SGPT 19 U/L (7-56); AST/SGOT 44 U/L (14-36)
[2018-11-09] MEDS ORDERED: Iohexol 350 MG/100 ML VIAL ONE (16:17)
[2018-11-09 16:23] LABS: URINE BILIRUBIN NEGATIVE (NEGATIVE); URINE BLOOD NEGATIVE (NEGATIVE); URINE GLUCOSE (UA) NEGATIVE (NEGATIVE); URINE LEUKOCYTE ESTERASE NEGATIVE Leu/uL (NEGATIVE); URINE PROTEIN NEGATIVE mg/dL (<30 mg/dL); URINE UROBILINOGEN 0.2 E.U./dL (<1 E.U./dL)
[2018-11-09 16:28] LABS: URINE APPEARANCE CLEAR (CLEAR)
[2018-11-09 16:30] LABS: HCG,QUALITATIVE URINE NEGATIVE (NEGATIVE)
--- NOTE | 2018-11-09 17:23 | CT ---
Date of service: 11/09/2018 PROCEDURE: CT Abdomen and Pelvis with contrast HISTORY: upper abd pain COMPARISON: CT abdomen and pelvis with IV contrast performed 08/28/17 TECHNIQUE: Contrast dose: 100 mL Omnipaque 350 IV Radiation dose: Total exam DLP = 789.21 mGy-cm. This CT exam was performed using one or more of the following dose reduction techniques: Automated exposure control, adjustment of the mA and/or kV according to patient size, and/or use of iterative reconstruction technique. FINDINGS: LOWER THORAX: Mild right basilar atelectasis. No visible pleural effusion or pneumothorax. LIVER: Unremarkable. GALLBLADDER AND BILE DUCTS: Cholecystectomy. PANCREAS: Unremarkable. SPLEEN: Unremarkable. ADRENALS: Unremarkable. KIDNEYS AND URETERS: The kidneys enhance symmetrically. No hydronephrosis or obstructing calculus identified. VASCULATURE: No aortic aneurysm. Scattered atherosclerotic calcifications present. BOWEL: Stomach is nondistended. Lack of oral contrast limits evaluation for bowel pathology. Bowel loops appear within normal limits of caliber without evidence of obstruction. APPENDIX: The appendix appears within normal limits of caliber. No secondary signs of acute appendicitis. PERITONEUM: No significant free fluid. No definite free air. LYMPH NODES: No bulky adenopathy identified. BLADDER: Unremarkable. REPRODUCTIVE: Unremarkable. BONES: No acute osseous abnormality is detected. OTHER FINDINGS: None. IMPRESSION: Mild right basilar atelectasis. Cholecystectomy.
[2018-11-09 17:39] VITALS: BP 112/66; PULSE 67
--- NOTE | 2018-11-09 17:55 | CARD ---
APPROVED REPORT Date of service: 11/09/2018 EKG Measurement Heart [id number] <Conclusion> Normal sinus rhythm Normal ECG
== END 2018-11-09 17:43 | disposition home or self-care (01) ==
LOC: ED 13:17
DX: D72.829 Elevated white blood cell count, unspecified (principal); R10.13 Epigastric pain
CPT/HCPCS: 74177; 80053; 81003; 81025; 83690; 83735; 84703; 85025; 85610; 85730; 93005; 96374; 96375; 99285; C9113; J2405; J7040; Q9967